=== PATIENT | male | born 1930 | race Caucasian/White ===

== ENCOUNTER 2016-04-29 22:53 | Inpatient (IN) | payer MEDICARE ==
[~2016-04-29] VITALS: Ht 177.8 cm; Wt 86.0 kg
[2016-04-29 22:53] VITALS: BP 101/54; PULSE 88; RESP 14; TEMP 97.9; O2SAT 96
[2016-04-29 23:25] VITALS: RESP 14; O2SAT 98
[2016-04-29] MEDS ORDERED: SODIUM CHLOR 0.9% 1000 ML INJ 1,000 ML IV ONE (23:30)
[2016-04-29 23:37] LABS: AUTOMATED NEUTROPHIL # 8.2 TH/MM3 (1.8-7.7); BASOPHIL % 0.3 % (0.0-2.0); EOSINOPHIL # 0.2 TH/MM3 (0-0.4); EOSINOPHIL % 1.5 % (0.0-4.0); HEMATOCRIT 37.4 % (39.0-51.0); HEMO FLAGS DIFF FINAL; LYMPH % 15.6 % (9.0-44.0); LYMPHOCYTE # 1.7 TH/MM3 (1.0-4.8); MEAN CELL VOLUME 84.7 FL (80.0-100.0); MEAN CORPUSCULAR HEMOGLOBIN 29.8 PG (27.0-34.0); MEAN CORPUSCULAR HGB CONC 35.2 % (32.0-36.0); MONO % 6.4 % (0.0-8.0); NEUT % 76.2 % (16.0-70.0); PLATELET COUNT 139 TH/MM3 (150-450); RED BLOOD COUNT 4.42 MIL/MM3 (4.50-5.90); RED CELL DISTRIBUTION WIDTH 14.4 % (11.6-17.2); WHITE BLOOD COUNT 10.8 TH/MM3 (4.0-11.0)
[2016-04-29] MEDS ORDERED: SODIUM CHLORID 0.9% 500 ML INJ 500 ML IV ONE (23:45)
[2016-04-29 23:49] LABS: APTT (PATIENT) 41.7 SEC (24.3-30.1); INTERNATIONAL NORMALIZED RATIO 1.9 RATIO; PROTHROMBIN TIME - PATIENT 21.8 SEC (9.8-11.6)
[2016-04-29 23:57] LABS: ALT (GPT) 41 U/L (12-78); ANION GAP 8 MEQ/L (5-15); AST (GOT) 41 U/L (15-37); BICARBONATE 28.3 MEQ/L (21.0-32.0); BLOOD UREA NITROGEN 17 MG/DL (7-18); CHLORIDE 106 MEQ/L (98-107); GLOMERULAR FILTRATION RATE 53 ML/MIN (>89); MAGNESIUM 2.1 MG/DL (1.5-2.5); POTASSIUM 3.6 MEQ/L (3.5-5.1); SODIUM (NA) 142 MEQ/L (136-145)
[2016-04-30] LABS: ALKALINE PHOSPHATASE 92 U/L (45-117); TOTAL BILIRUBIN ADULT 1.4 MG/DL (0.2-1.0)
[2016-04-30 00:02] LABS: CREATINE KINASE 78 U/L (39-308)
--- NOTE | 2016-04-30 00:24 | RADRPT ---
EXAM DATE/TIME: 04/29/2016 23:51 [facility] COMPARISON: No previous studies available for comparison. INDICATIONS : Short of breath and cough. MEDICAL HISTORY : Cardiovascular disease. SURGICAL HISTORY : CABG. Pacemaker. ENCOUNTER: Initial ACUITY: 2 days PAIN SCORE: Non-responsive. LOCATION: Bilateral chest FINDINGS: Cardiomegaly, sternotomy wires and mediastinal clips are noted from previous CABG. Pacer/ICD device f rom a left subclavian transvenous approach noted. The lungs are clear. Osseous structures are intact. CONCLUSION: No acute disease. Morgan Moser MD on April 30, 2016 at 0:22 Board Certified Radiologist. This report was verified electronically.
--- NOTE | 2016-04-30 00:47 | PD ---
HPI Chief Complaint: GI Complaint Time Seen by Provider: 23:09 Travel History International Travel<30 days: No Contact w/Intl Traveler<30days: No Traveled to known affect area: No History of Present Illness HPI The patient is an 86 year old male who presents to the [facility] emergency department with a history of reportedly awakening shortly after falling asleep with a strange sensation in his abdomen like he needed to move his bowels. He reports that he got up and unfortunately had bowel incontinence. According to ambulance services a stool was mainly brown, however there were some parts of the stool that appeared to be dark brown. The patient is reportedly on Coumadin for chronic anticoagulation related to atrial fibrillation. The patient reports that 2 weeks ago he had GI distress and thought that this may be related to coffee intake, therefore he decrease his coffee intake and the symptoms to resolve. He reports that he last had coffee at 3 AM yesterday. The patient denies having any abdominal pain currently. He denies having any nausea or vomiting. The patient reports that he last had a colonoscopy approximately 10 years ago which did have some polyps that were removed, however he was told that he did not require another colonoscopy given his age in the future. He denies any prior history of GI bleed. He reports that he last had his Coumadin level checked on Saturday and it was reportedly therapeutic. He had no changes in his medication regimen at that time. The patient denies any sick contacts, recent antibiotic use, or foreign travel. The patient denies any recent fevers, new cough or congestion, neck pain, chest pain, shortness of breath, urinary symptoms, or neurologic symptoms. [facility] Past Medical History Narrative Medical The patient's past medical history is significant for chf, mi 12 years ago, Afib chronically anticoagulated on coumadin, hypertension, history of gastritis , history of an abdominal aortic aneurysm, history of prostate cancer, history of skin cancer currently undergoing radiation therapy for this. History of hyperlipidemia. Last colonoscopy was approximately 10 years ago. Atrial Fibrillation: Yes Cancer: Yes (SKIN) High Cholesterol: Yes Congestive Heart Failure: Yes Radiation Therapy: Yes Tetanus Vaccination: Unknown Influenza Vaccination: Yes Past Surgical History Narrative Surgical The patient's past surgical history is significant for a pacemaker placement. Pacemaker: Yes Social History Alcohol Use: No Tobacco Use: No Substance Use: No Allergies-Medications (Allergen,Severity, Reaction): Coded Allergies: Penicillin (Verified Allergy, Intermediate, Rash, 04/29/16) Reported Meds & Prescriptions Reported Meds & Active Scripts Active Reported Atorvastatin (Atorvastatin Calcium) 40 Mg Tab 40 Mg PO HS Coreg (Carvedilol) 12.5 Mg Tab 12.5 Mg PO BID Torsemide 10 Mg Tab 10 Mg PO BID Jantoven (Warfarin) 5 Mg Tab 5 Mg PO DAILY Norvasc (Amlodipine Besylate) 10 Mg Tab 10 Mg PO DAILY Entresto (Sacubitril-Valsartan) 97-103 Mg Tab 1 Tab PO DAILY Review of Systems General / Constitutional: No: Fever Eyes: No: Visual changes HENT: No: Headaches Cardiovascular: No: Chest Pain or Discomfort Respiratory: No: Shortness of Breath Gastrointestinal: Positive: Diarrhea, Changes in Bowel Habits, No: Nausea, Vomiting, Abdominal Pain, Constipation, Indigestion, Loss of Appetite Genitourinary: No: Dysuria Musculoskeletal: No: Pain Skin: No Rash Neurologic: No: Weakness Psychiatric: No: Depression Endocrine: No: Polydipsia Hematologic/Lymphatic: No: Easy Bruising Physical Exam Narrative General: The patient is a well-developed well-nourished male in no acute distress. Head and Neck exam: Head is normocephalic atraumatic. Eyes: EOMI, pupils are equal round and reactive to light. Nose: Midline septum with pink mucous membranes Mouth: Dentition unremarkable. Moist mucus membranes. Posterior oropharynx is not erythematous. No tonsillar hypertrophy. Uvula midline. Airway patent. Neck: No palpable lymphadenopathy. No nuchal rigidity. No thyromegaly. Cardiovascular: Regular rate and rhythm without murmurs, gallops, or rubs. No pulse deficit to the extremities and simultaneous auscultation and palpation of his radial artery. Lungs: Clear to auscultation bilaterally. No wheezes, rhonchi, or rales. Abdomen: Soft, without tenderness to palpation in all 4 quadrants of the abdomen. No guarding, rebound, or rigidity. Normal bowel sounds are audible. No tenderness on palpation of McBurney's point. Negative Unger sign Extremities: No clubbing or cyanosis. The patient has trace pedal edema. 2+ pulses in all 4 extremities. No calf tenderness on palpation. Back: No spinous process tenderness to palpation. No costovertebral angle tenderness to palpation. Neurologic Exam: Grossly nonfocal. Skin Exam: No rash noted. Intact skin that is warm and dry. RECTAL EXAM: No masses or tenderness, stool is dark brown. Stool is trace Hemoccult-positive. Data Data Last Documented VS Vital Signs Date Time Temp Pulse Resp B/P Pulse Ox O2 Delivery O2 Flow Rate FiO2 04/29/16 23:25 14 98 Room Air 04/29/16 22:53 97.9 88 101/54 Orders Electrocardiogram (04/29/16 23:18) Complete Blood Count With Diff (04/29/16 23:18) Comprehensive Metabolic Panel (04/29/16 23:18) Creatine Kinase (Cpk) (04/29/16 23:18) Ckmb (Isoenzyme) Profile (04/29/16 23:18) Troponin I (04/29/16 23:18) B-Type Natriuretic Peptide (04/29/16 23:18) Prothrombin Time / Inr (Pt) (04/29/16 23:18) Act Partial Throm Time (Ptt) (04/29/16 23:18) C-Reactive Protein (Crp) (04/29/16 23:18) Lipase (04/29/16 23:18) Urinalysis - C+S If Indicated (04/29/16 23:18) Magnesium (Mg) (04/29/16 23:18) Chest, Single Ap (04/29/16 23:18) Iv Access Insert/Monitor (04/29/16 23:18) Ecg Monitoring (04/29/16 23:18) Oximetry (04/29/16 23:18) Lactic Acid Sepsis Protocol (04/29/16 23:18) Stool Wbc (Leukocytes) (04/29/16 23:29) Enteric Path (Stool) (04/29/16 23:29) C Diff Toxin Pcr (04/29/16 23:29) Sodium Chlor 0.9% 1000 Ml Inj (Ns 1000 M (04/29/16 23:30) Sodium Chlorid 0.9% 500 Ml Inj (Ns 500 M (04/29/16 23:45) Type And Screen (04/29/16 23:45) Ct Abd/Pel W Iv Contrast(Rout) (04/30/16 00:45) Iohexol 350 Inj (Omnipaque 350 Inj) (04/30/16 01:40) Pantoprazole Inj (Protonix Inj) (04/30/16 02:15) Pantoprazole Inj (Protonix Inj) (04/30/16 02:15) Admit Order (Ed Use Only) (04/30/16 02:31) Labs Laboratory Tests Test 04/29/16 04/30/16 04/30/16 23:25 00:10 01:30 White Blood Count 10.8 TH/MM3 Red Blood Count 4.42 MIL/MM3 Hemoglobin 13.2 GM/DL Hematocrit 37.4 % Mean Corpuscular Volume 84.7 FL Mean Corpuscular Hemoglobin 29.8 PG Mean Corpuscular Hemoglobin 35.2 % Concent Red Cell Distribution Width 14.4 % Platelet Count 139 TH/MM3 Mean Platelet Volume 8.8 FL Neutrophils (%) (Auto) 76.2 % Lymphocytes (%) (Auto) 15.6 % Monocytes (%) (Auto) 6.4 % Eosinophils (%) (Auto) 1.5 % Basophils (%) (Auto) 0.3 % Neutrophils # (Auto) 8.2 TH/MM3 Lymphocytes # (Auto) 1.7 TH/MM3 Monocytes # (Auto) 0.7 TH/MM3 Eosinophils # (Auto) 0.2 TH/MM3 Basophils # (Auto) 0.0 TH/MM3 CBC Comment DIFF FINAL Differential Comment Prothrombin Time 21.8 SEC Prothromb Time International 1.9 RATIO Ratio Activated Partial 41.7 SEC Thromboplast Time Sodium Level 142 MEQ/L Potassium Level 3.6 MEQ/L Chloride Level 106 MEQ/L Carbon Dioxide Level 28.3 MEQ/L Anion Gap 8 MEQ/L Blood Urea Nitrogen 17 MG/DL Creatinine 1.29 MG/DL Estimat Glomerular Filtration 53 ML/MIN Rate Random Glucose 122 MG/DL Lactic Acid Level 1.5 mmol/L Calcium Level 9.1 MG/DL Magnesium Level 2.1 MG/DL Total Bilirubin 1.4 MG/DL Aspartate Amino Transf 41 U/L (AST/SGOT) Alanine Aminotransferase 41 U/L (ALT/SGPT) Alkaline Phosphatase 92 U/L Total Creatine Kinase 78 U/L Troponin I LESS THAN 0.02 NG/ML C-Reactive Protein LESS THAN 0.29 MG/DL B-Type Natriuretic Peptide 569 PG/ML Total Protein 6.6 GM/DL Albumin 3.7 GM/DL Lipase 131 U/L Blood Type B NEGATIVE Antibody Screen NEGATIVE Blood Bank Comment Urine Color YELLOW Urine Turbidity CLEAR Urine pH 6.5 Urine Specific [place] 1.002 Urine Protein NEG mg/dL Urine Glucose (UA) NEG mg/dL Urine Ketones NEG mg/dL Urine Occult Blood NEG Urine Nitrite NEG Urine Bilirubin NEG Urine Urobilinogen LESS THAN 2.0 MG/DL Urine Leukocyte Esterase NEG Urine RBC 1 /hpf Urine WBC 2 /hpf Microscopic Urinalysis Comment CULT NOT INDICATED MDM Medical Decision Making Medical Screen Exam Complete: Yes Emergency Medical Condition: Yes Medical Record Reviewed: Yes Interpretation(s) Last Impressions Abdomen/Pelvis CT 04/30/16 0045 Signed Impressions: Service Date/Time: Saturday, April 30, 2016 01:40 - CONCLUSION: 1. 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 2. Atherosclerosis. 3. Nonobstructing renal calculi. 4. Diverticulosis without diverticulitis. 5. Prominent prostate gland. 6. Small hiatal hernia. 7. Fat containing umbilical hernia. 8. Tiny bilateral pleural effusions. Morgan Moser MD Chest X-Ray 04/29/16 4045 Signed Impressions: Service Date/Time: Friday, April 29, 2016 23:51 - CONCLUSION: No acute disease. Morgan Moser MD Differential Diagnosis GI bleed, versus gastroenteritis, versus elevated INR Narrative Course During the course of the patients emergency department visit, the patients history, examination, and differential diagnosis were reviewed with the patient. The patient had IV access obtained and blood work sent for analysis. The patient was placed on a desk monitor with oximetry and blood pressure monitoring. The patient had an EKG done on arrival. The patient's EKG shows an electronically paced rhythm, heart rate of 87, no acute abnormality. The patient's blood pressure briefly dropped down to a systolic in the 90s. The patient was given normal saline a 500 mL bolus 1. The patient was started on Protonix 80 mg IV, Protonix 80 mg IV per hour. The patients laboratory studies were reviewed and remarkable for a white count of 10.8, hemoglobin 13.2, platelets 139 with neutrophils 76.2, CMP is remarkable for glucose of 122, total bilirubin 1.4, AST 41, CPK and troponin I unremarkable, C-reactive protein less than 0.29, BNP is 569, lipase 131, INR is 1.9, urinalysis is unremarkable Radiology studies were reviewed and remarkable for a chest x-ray that shows no acute abnormality. CT scan of the abdomen and pelvis shows a focal aneurysmal dilatation of the infrarenal abdominal aorta that is 4.1 x 3.3 cm. The patient reports that he has a history of this, history of atherosclerosis noted of the aorta and iliac vessels, nonobstructing renal calculi, diverticulosis without diverticulitis, prominent prostate gland, small hiatal hernia, fat containing umbilical hernia, tiny bilateral pleural effusions. The patient has Hemoccult positive stools on examination. The patient had a brief drop in his blood pressure that improved after IV fluids. The patient will be admitted to the hospital for continued evaluation and treatment, serial hemoglobins given the fact that the patient is anticoagulated on Coumadin with an INR 1.9. The patients results were discussed with the patient, including the plan of care. I explained that further testing and/ or monitoring is indicated based on the patients history, examination, and/ or laboratory findings. Therefore, I recommended admission for additional evaluation. The patient expressed understanding and was agreeable with this plan. The patient was admitted to the hospital in guarded condition and [facility] Phys[facility] Communication Physician Communication The patient's case was discussed with Dr. Degroot who did agree to admit the patient for further evaluation and treatment at this time. Diagnosis Primary Impression: GI bleed Qualified Code: K92.2 - Gastrointestinal hemorrhage, unspecified gastrointestinal hemorrhage type Additional Impressions: Thrombocytopenia Transient hypotension Admitting Information Admitting Physician Requests: Admit Jody Ferreira MD Apr 30, 2016 00:47
[2016-04-30] MEDS ORDERED: IOHEXOL 350 MG/ML 10 ML VIAL (for RAD DIAG) IV ONE (01:40)
--- NOTE | 2016-04-30 01:55 | RADRPT ---
EXAM DATE/TIME: 04/30/2016 01:40 [facility] COMPARISON: No previous studies available for comparison. INDICATIONS : Diarrhea, weakness, and lethargy. IV CONTRAST: 98 cc Omnipaque 350 (iohexol) IV ORAL CONTRAST: No oral contrast ingested. RADIATION DOSE: 11.07 CTDIvol (mGy) MEDICAL HISTORY : Congestive heart failure. Skin cancer. SURGICAL HISTORY : Pacemaker. ENCOUNTER: Initial ACUITY: 1 day PAIN SCALE: 0/10 LOCATION: Bilateral abdomen TECHNIQUE: Volumetric scanning of the abdomen and pelvis was performed. Using automated exposure control and ad justment of the mA and/or kV according to patient size, radiation dose was kept as low as reasonably achievable to obtain optimal diagnostic quality images. FINDINGS: Cardiomegaly. Liver, gallbladder, spleen, pancreas, adrenal glands, right kidney unremarkable. 3 mm n onobstructing left lower pole renal calculus. There is atherosclerotic calcification of the aorta and iliac vessels and focal aneurysmal dilatation of the infrarenal abdominal aorta measuring 4.1 x 3.3 cm in transverse and AP dimension on axial image 41. Urinary bladder unremarkable. The prostate gland is prominent in size measuring 5.5 x 5.8 cm in AP transverse dimension with soft tissue impression o n the posterior aspect of the urinary bladder. Tiny fat containing umbilical hernia. Diverticulosis o f the sigmoid colon and descending colon. Appendix normal. Small hiatal hernia. Degenerative changes of the lumbar spine are noted. Tiny bilateral pleural effusions. CONCLUSION: 1. 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 2. Atherosclerosis. 3. Nonobstructing renal calculi. 4. Diverticulosis without diverticulitis. 5. Prominent prostate gland. 6. Small hiatal hernia. 7. Fat containing umbilical hernia. 8. Tiny bilateral pleural effusions. Morgan Moser MD on April 30, 2016 at 1:51 Board Certified Radiologist. This report was verified electronically.
[2016-04-30] MEDS ORDERED: PANTOPRAZOLE INJ 80 MG in SODIUM CHLORIDE 0.9% INJ 35 ML IV ONE (02:15)
[2016-04-30 02:24] LABS: BLOOD, URINE NEG (NEG); COMMENT (UR) CULT NOT INDICATED; CULTURE IF INDICATED CULT NOT INDICATED; GLUCOSE,URINE NEG (NEG); KETONE, URINE NEG (NEG); NITRITE,URINE NEG (NEG); PH, URINE 6.5 (5.0-8.5); URINE COLOR YELLOW (YELLW/STRAW)
[2016-04-30] MEDS: SODIUM CHLOR 0.9% 1000 ML INJ 1,000 ML IV SCH ×3 (02:42→22:03)
[2016-04-30] MEDS: PANTOPRAZOLE INJ 80 MG in SODIUM CHLORIDE 0.9% INJ 100 ML IV SCH ×2 (02:42→19:33)
[2016-04-30] MEDS ORDERED: ATOR40TA16 PO (02:44)
[2016-04-30] MEDS ORDERED: JANT5TAB PO (02:44)
[2016-04-30] MEDS ORDERED: TORS10TA2 PO (02:44)
[2016-04-30] MEDS ORDERED: SACU1TAB4 PO (02:44)
[2016-04-30] MEDS ORDERED: AMLO10 PO (02:44)
[2016-04-30] MEDS ORDERED: CARV12.5 PO (02:44)
[2016-04-30] MEDS ORDERED: ONDANSETRON HCL 4 MG/2 ML VIAL IVP PRN (02:45)
[2016-04-30] MEDS ORDERED: BISACODYL 10 MG SUPP PR PRN (02:45)
[2016-04-30] MEDS ORDERED: MORPHINE SULFATE 4 MG/ML INJ IV PRN (02:45)
[2016-04-30] MEDS ORDERED: ACETAMINOPHEN 325 MG TAB PO PRN (02:45)
[2016-04-30] MEDS ORDERED: SODIUM CHLORIDE 0.9% FLUSH 5 ML FLUSH FLUSH PRN (02:45)
[2016-04-30] MEDS ORDERED: ACETAMINOPHEN/HYDROcodone 325 MG/5 MG TAB PO PRN (02:45)
[2016-04-30 03:00] VITALS: BP 114/59; PULSE 83; RESP 16; O2SAT 98
[2016-04-30 04:00] LABS: AUTOMATED NEUTROPHIL # 8.3 TH/MM3 (1.8-7.7); BASOPHIL % 0.4 % (0.0-2.0); EOSINOPHIL # 0.1 TH/MM3 (0-0.4); HEMATOCRIT 38.2 % (39.0-51.0); HEMO FLAGS DIFF FINAL; LYMPH % 16.7 % (9.0-44.0); LYMPHOCYTE # 1.8 TH/MM3 (1.0-4.8); MEAN CELL VOLUME 84.9 FL (80.0-100.0); MEAN CORPUSCULAR HEMOGLOBIN 29.2 PG (27.0-34.0); MEAN CORPUSCULAR HGB CONC 34.4 % (32.0-36.0); MONO % 6.2 % (0.0-8.0); NEUT % 75.7 % (16.0-70.0); PLATELET COUNT 137 TH/MM3 (150-450); RED CELL DISTRIBUTION WIDTH 14.2 % (11.6-17.2); WHITE BLOOD COUNT 10.9 TH/MM3 (4.0-11.0)
--- NOTE | 2016-04-30 04:01 | HHI.HP ---
[facility] Service [facility] Primary Care Physician Elio Fletcher MD Admission Diagnosis GI Bleed Diagnoses: (1) GI bleed Diagnosis: Principal (2) Transient hypotension Diagnosis: Principal (3) A-fib Diagnosis: Principal (4) Thrombocytopenia Diagnosis: Principal Travel History International Travel<30 Days: No Contact w/Intl Traveler <30 Da: No Traveled to Known Affected Are: No History of Present Illness This is an 86-year-old male with PMH of HTN, A. fib on Coumadin, Gastritis, AAA , h/o Prostate CA and Skin CA who was brought to the ER by EMS secondary to GI Bleed. Per pt he woke up from sleep earlier this evening and had acute onset of abdominal cramping followed by bowel incontinence. On arrival, BP 80s systolic s/p 500ml IVF w/ repeat BP 101/54, HR 88, O2 sat 98% on RA, Afebrile. Hgb 13.2. Chemistry essentially unremarkable. Troponin negative. INR 1.9. UA negative. CXR with no acute findings. CT Abd/Pelvis w/ infrarenal abdominal aortic aneurysm 4.1 x 3.3 cm. Hemoccult+ on exam. Started on Protonix gtt in ER. Review of Systems Other ROS: 14 point review of systems otherwise negative. Past Family Social History Past Medical History PMH: HTN, A. fib on Coumadin, Gastritis, AAA, h/o Prostate CA and Skin CA Past Surgical History PAST SURGICAL HISTORY: Pacemaker Allergies: Coded Allergies: Penicillin (Verified Allergy, Intermediate, Rash, 04/29/16) Family History PAST FAMILY HISTORY: Reviewed. No h/o DM or CAD Social History PAST SOCIAL HISTORY: Negative for alcohol, tobacco or drugs. Physical Exam Vital Signs Vital Signs Date Time Temp Pulse Resp B/P Pulse Ox O2 Delivery O2 Flow Rate FiO2 04/29/16 23:25 14 98 Room Air 04/29/16 22:53 97.9 88 14 101/54 96 04/29/16 22:53 14 Physical Exam PE: GENERAL: Pleasant elderly white male in no acute distress. [place]. HEENT: PERRLA, EOMI. No scleral icterus or conjunctival pallor. No lid lag or facial droop. CARDIOVASCULAR: Regular rate and rhythm. No obvious murmurs to auscultation. No chest tenderness to palpation. RESPIRATORY: No obvious rhonchi or wheezing. Clear to auscultation. Breath sounds equal bilaterally. GASTROINTESTINAL: Abdomen soft, non-tender, nondistended. BS normal. MUSCULOSKELETAL: Extremities without clubbing, cyanosis, or edema. No obvious deformities. NEUROLOGICAL: Awake, alert and oriented x4. No focal neurologic deficits. Moving both upper and lower extremities spontaneously. Laboratory Laboratory Tests Test 04/29/16 04/30/16 04/30/16 23:25 00:10 01:30 White Blood Count 10.8 Red Blood Count 4.42 Hemoglobin 13.2 Hematocrit 37.4 Mean Corpuscular Volume 84.7 Mean Corpuscular Hemoglobin 29.8 Mean Corpuscular Hemoglobin 35.2 Concent Red Cell Distribution Width 14.4 Platelet Count 139 Mean Platelet Volume 8.8 Neutrophils (%) (Auto) 76.2 Lymphocytes (%) (Auto) 15.6 Monocytes (%) (Auto) 6.4 Eosinophils (%) (Auto) 1.5 Basophils (%) (Auto) 0.3 Neutrophils # (Auto) 8.2 Lymphocytes # (Auto) 1.7 Monocytes # (Auto) 0.7 Eosinophils # (Auto) 0.2 Basophils # (Auto) 0.0 CBC Comment DIFF FINAL Differential Comment Prothrombin Time 21.8 Prothromb Time International 1.9 Ratio Activated Partial 41.7 Thromboplast Time Sodium Level 142 Potassium Level 3.6 Chloride Level 106 Carbon Dioxide Level 28.3 Anion Gap 8 Blood Urea Nitrogen 17 Creatinine 1.29 Estimat Glomerular Filtration 53 Rate Random Glucose 122 Lactic Acid Level 1.5 Calcium Level 9.1 Magnesium Level 2.1 Total Bilirubin 1.4 Aspartate Amino Transf 41 (AST/SGOT) Alanine Aminotransferase 41 (ALT/SGPT) Alkaline Phosphatase 92 Total Creatine Kinase 78 Troponin I LESS THAN 0.02 C-Reactive Protein LESS THAN 0.29 B-Type Natriuretic Peptide 569 Total Protein 6.6 Albumin 3.7 Lipase 131 Blood Type B NEGATIVE Antibody Screen NEGATIVE Blood Bank Comment Urine Color YELLOW Urine Turbidity CLEAR Urine pH 6.5 Urine Specific [place] 1.002 Urine Protein NEG Urine Glucose (UA) NEG Urine Ketones NEG Urine Occult Blood NEG Urine Nitrite NEG Urine Bilirubin NEG Urine Urobilinogen LESS THAN 2.0 Urine Leukocyte Esterase NEG Urine RBC 1 Urine WBC 2 Microscopic Urinalysis Comment CULT NOT INDICATED Result Diagram: 04/29/16 8954 04/29/16 Assessment and Plan Problem List: (1) GI bleed ICD Code: K92.2 Status: Acute (2) Transient hypotension ICD Code: I95.9 Status: Acute (3) A-fib ICD Code: I48.91 Status: Acute (4) Thrombocytopenia ICD Code: D69.6 Status: Acute Assessment and Plan A/P: 1. GI Bleed: Acute onset of abdominal cramping followed by bowel incontinence , +Hemoccult on exam. On Coumadin for A-fib, INR 1.9. Hgb 13.5. Started on Protonix gtt in ER. Continue Protonix gtt, Consult GI for further evaluation, hold Coumadin, repeat labs in am. 2. Transient Hypotension: BP 80's systolic on arrival, s/p 500ml IVF w/ repeat BP 101/54, HR 88. Monitor BP closely, IVF for hydration. Hold home antihypertensive meds for now until BP stabilized. 3. A-fib: Paroxysmal. On Coumadin. INR 1.9. As above, will hold Coumadin for acute GI Bleed. 4. Thrombocytopenia: Platelets 139, no previous labs for comparison. Repeat labs in am, hold anticoagulation. 5. DVT Prophylaxis: Pharmacologic contraindication in light of GI Bleed 6. Social work for d/c planning as needed. 7. Case discussed w/ ER physician at length. Physician Certification 2 Midnight Certification Type: Admission for Inpatient Services Order for Inpatient Services The services are ordered in accordance with Medicare regulations or non- Medicare payer requirements, as applicable. In the case of services not specified as inpatient-only, they are appropriately provided as inpatient services in accordance with the 2-midnight benchmark. Estimated LOS (days): 2 days is the estimated time the patient will need to remain in the hospital, assuming treatment plan goals are met and no additional complications. Post-Hospital Plan: Not yet determined Rani Degroot MD Apr 30, 2016 04:01
[2016-04-30 04:24] LABS: ALT (GPT) 36 U/L (12-78); ANION GAP 8 MEQ/L (5-15); AST (GOT) 26 U/L (15-37); BICARBONATE 26.3 MEQ/L (21.0-32.0); BLOOD UREA NITROGEN 15 MG/DL (7-18); CHLORIDE 108 MEQ/L (98-107); GLOMERULAR FILTRATION RATE 65 ML/MIN (>89); SODIUM (NA) 142 MEQ/L (136-145)
[2016-04-30 04:26] LABS: ALKALINE PHOSPHATASE 86 U/L (45-117); TOTAL BILIRUBIN ADULT 1.4 MG/DL (0.2-1.0)
[2016-04-30 08:39] VITALS: BP 128/63; PULSE 84; RESP 20; TEMP 97.4; O2SAT 97
[2016-04-30] MEDS: SODIUM CHLORIDE 0.9% FLUSH 5 ML FLUSH FLUSH SCH ×2 (09:00→20:54)
--- NOTE | 2016-04-30 09:15 | PD.CONS ---
HPI History of Present Illness This is a 86 year old male on Coumadin for atrial fibrillation, who was brought to the ER for evaluation of GI bleeding. He reports that recently, he has been having what he calls "intestinal distress" with lower abdominal cramping, urgency to move his bowels, and loose stool. He felt this was related to drinking 3 cups of caffeinated coffee and therefore cut down his coffee and started using imodium as needed- which seemed to help. He reports that his episodes were sporadic and that he never noticed if it was dark stool or not. Yesterday, he went to bed and was awakened around 10pm with the sudden urge to move his bowels. He reports that he was not able to make it to the restroom before he was incontinent of black stool. Once he was in the bathroom, he had a feeling of being "out of his body in outer space" and therefore called 911 for help. He denies any associated nausea, vomiting, heartburn, reflux. He does take Coumadin for atrial fibrillation and took this last yesterday. He reports that he last had a colonoscopy 10 years ago. About 3 years ago, he was noted to have borderline anemia and it was suspected that he may have some upper gi bleeding related to gastritis and therefore was started on an acid access control officer. He did not have any endoscopic evaluation at that time and he cannot recall if he had his stool checked for blood, but states his primary care evaluated him for this and that was what was suspected. (Priscilla Diamond) PFSH Past Medical History HTN A. fib on Coumadin Suspected Gastritis AAA Hx of Prostate CA Hx of Skin CA- radiation CHF CAD/MD Hyperlipidemia. Osteoarthritis Past Surgical History Pacemaker placement Colonoscopy Left knee replacement (Priscilla Diamond) Coded Allergies: Penicillin (Verified Allergy, Intermediate, Rash, 04/29/16) Medications Allergies Coded Allergies Type Severity Reaction Last Updated Verified Penicillin Allergy Intermediate Rash 04/29/16 Yes Active Scripts Medications Dose Route/Sig Days Date Category Atorvastatin (Atorvastatin Calcium) 40 Mg Tab 40 Mg PO HS 04/30/16 Reported Coreg (Carvedilol) 12.5 Mg Tab 12.5 Mg PO BID 04/30/16 Reported Torsemide 10 Mg Tab 10 Mg PO BID 04/30/16 Reported Jantoven (Warfarin) 5 Mg Tab 5 Mg PO DAILY 04/30/16 Reported Norvasc (Amlodipine Besylate) 10 Mg Tab 10 Mg PO DAILY 04/30/16 Reported Entresto (Sacubitril-Valsartan) 97-103 Mg Tab 1 Tab PO DAILY 04/30/16 Reported Family History Father from lung cancer Social History Negative for alcohol, tobacco or drugs. (LoboPriscilla) Review of Systems Constitutional: COMPLAINS OF: Fatigue, DENIES: Weight loss, Change in appetite Respiratory: DENIES: Cough, Shortness of breath Cardiovascular: DENIES: Chest pain Gastrointestinal: COMPLAINS OF: Abdominal pain, Black stools, Diarrhea, DENIES : Bloody stools, Constipation, Nausea, Vomiting, Anorexia, Swelling of Abdomen, Heartburn, Hematemesis Musculoskeletal: COMPLAINS OF: Joint pain Integumentary: DENIES: Abnormal pigmentation Hematologic/lymphatic: COMPLAINS OF: Bruising Neurologic: DENIES: Headache Psychiatric: DENIES: Confusion (Priscilla Diamond) GI Exam Vitals I&O Vital Signs Date Time Temp Pulse Resp B/P Pulse Ox O2 Delivery O2 Flow Rate FiO2 04/30/16 08:39 97.4 84 20 128/63 97 04/30/16 03:00 83 16 114/59 98 Room Air 04/29/16 23:25 14 98 Room Air 04/29/16 22:53 97.9 88 14 101/54 96 04/29/16 22:53 14 I/O 04/29/16 04/29/16 04/29/16 04/30/16 04/30/16 04/30/16 07:00 15:00 23:00 07:00 15:00 23:00 Intake Total 0 ml Balance 0 ml Intake Oral 0 ml # Voids 0 # Bowel Movements 0 Imaging Last Impressions Abdomen/Pelvis CT 04/30/16 0045 Signed Impressions: Service Date/Time: Saturday, April 30, 2016 01:40 - CONCLUSION: 1. 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 2. Atherosclerosis. 3. Nonobstructing renal calculi. 4. Diverticulosis without diverticulitis. 5. Prominent prostate gland. 6. Small hiatal hernia. 7. Fat containing umbilical hernia. 8. Tiny bilateral pleural effusions. Morgan Moser MD Chest X-Ray 04/29/16 8804 Signed Impressions: Service Date/Time: Friday, April 29, 2016 23:51 - CONCLUSION: No acute disease. Morgan Moser MD Laboratory Test 04/29/16 04/30/16 04/30/16 04/30/16 23:25 00:10 01:30 03:43 White Blood Count 10.8 TH/MM3 10.9 TH/MM3 Red Blood Count 4.42 MIL/MM3 4.50 MIL/MM3 Hemoglobin 13.2 GM/DL 13.1 GM/DL Hematocrit 37.4 % 38.2 % Mean Corpuscular Volume 84.7 FL 84.9 FL Mean Corpuscular Hemoglobin 29.8 PG 29.2 PG Mean Corpuscular Hemoglobin 35.2 % 34.4 % Concent Red Cell Distribution Width 14.4 % 14.2 % Platelet Count 139 TH/MM3 137 TH/MM3 Mean Platelet Volume 8.8 FL 8.6 FL Neutrophils (%) (Auto) 76.2 % 75.7 % Lymphocytes (%) (Auto) 15.6 % 16.7 % Monocytes (%) (Auto) 6.4 % 6.2 % Eosinophils (%) (Auto) 1.5 % 1.0 % Basophils (%) (Auto) 0.3 % 0.4 % Neutrophils # (Auto) 8.2 TH/MM3 8.3 TH/MM3 Lymphocytes # (Auto) 1.7 TH/MM3 1.8 TH/MM3 Monocytes # (Auto) 0.7 TH/MM3 0.7 TH/MM3 Eosinophils # (Auto) 0.2 TH/MM3 0.1 TH/MM3 Basophils # (Auto) 0.0 TH/MM3 0.0 TH/MM3 CBC Comment DIFF FINAL DIFF FINAL Differential Comment Prothrombin Time 21.8 SEC Prothromb Time International 1.9 RATIO Ratio Activated Partial 41.7 SEC Thromboplast Time Sodium Level 142 MEQ/L 142 MEQ/L Potassium Level 3.6 MEQ/L 4.0 MEQ/L Chloride Level 106 MEQ/L 108 MEQ/L Carbon Dioxide Level 28.3 MEQ/L 26.3 MEQ/L Anion Gap 8 MEQ/L 8 MEQ/L Blood Urea Nitrogen 17 MG/DL 15 MG/DL Creatinine 1.29 MG/DL 1.08 MG/DL Estimat Glomerular Filtration 53 ML/MIN 65 ML/MIN Rate Random Glucose 122 MG/DL 106 MG/DL Lactic Acid Level 1.5 mmol/L Calcium Level 9.1 MG/DL 8.7 MG/DL Magnesium Level 2.1 MG/DL Total Bilirubin 1.4 MG/DL 1.4 MG/DL Aspartate Amino Transf 41 U/L 26 U/L (AST/SGOT) Alanine Aminotransferase 41 U/L 36 U/L (ALT/SGPT) Alkaline Phosphatase 92 U/L 86 U/L Total Creatine Kinase 78 U/L Troponin I LESS THAN 0.02 NG/ML C-Reactive Protein LESS THAN 0.29 MG/DL B-Type Natriuretic Peptide 569 PG/ML Total Protein 6.6 GM/DL 6.3 GM/DL Albumin 3.7 GM/DL 3.5 GM/DL Lipase 131 U/L Blood Type B NEGATIVE Antibody Screen NEGATIVE Blood Bank Comment Urine Color YELLOW Urine Turbidity CLEAR Urine pH 6.5 Urine Specific Jerome 1.002 Urine Protein NEG mg/dL Urine Glucose (UA) NEG mg/dL Urine Ketones NEG mg/dL Urine Occult Blood NEG Urine Nitrite NEG Urine Bilirubin NEG Urine Urobilinogen LESS THAN 2.0 MG/DL Urine Leukocyte Esterase NEG Urine RBC 1 /hpf Urine WBC 2 /hpf Microscopic Urinalysis Comment CULT NOT INDICATED Physical Examination HEENT: Normocephalic; atraumatic; no jaundice. Throat is clear. NECK: Neck is supple, no JVD, no lymphadenopathy. CHEST: CTA CARDIAC: Irregular ABDOMEN: Soft, nondistended, nontender; no hepatosplenomegaly; bowel sounds are present in all four quadrants. EXTREMITIES: No clubbing, cyanosis, or edema. SKIN: Normal; no rash; no jaundice. MANUFACTURING TEAM LEADER: No focal deficits; alert and oriented times three. (Priscilla DiamondP) Assessment and Plan Plan ASSESSMENT: - Upper GI bleeding, Melena. Pt had sudden urge to move his bowels with lower abdominal cramping, urgency, incontinence of black tarry stool. Last colonoscopy 10 years ago. About 3 years ago, he was noted to have borderline anemia and it was suspected that he may have some upper gi bleeding related to gastritis and therefore was started on an acid access control officer. He did not have any endoscopic evaluation at that time. HH stable. INR 1.9. Coumadin on hold. PPI Gtt. - Atrial fibrillation, on Coumadin. - HTN, CHF, CAD/MD, Hyperlipidemia per primary PLAN: - Plan for egd - Obtain consents - Cont. PPI Gtt for now - Monitor HH - Transfuse as necessary - Supportive care - Further recommendations to follow based on results of above - Pt seen and examined by Dr. Mueller and myself and this note is written on his behalf (Priscilla Diamond) Physician Comments Seen and examined with Ms. Amira RAJAN, no active bleeding, feels well. Family at the bedside. EGD planned for tomorrow, if -ve possible colonoscopy. Monitor labs. Will follow. Thank you (Janeth Mueller MD) Priscilla Diamond Apr 30, 2016 09:15 Janeth Mueller MD Apr 30, 2016 18:26
--- NOTE | 2016-04-30 11:43 | EKG ---
Date Performed: 04/29/2016 Time Performed: 23:06:12 PTAGE: 86 years EKG: ELECTRONIC VENTRICULAR PACEMAKER ABNORMAL RHYTHM ECG NO PREVIOUS TRACING DOCTOR: Bryan Silva Interpretating Date/Time 04/30/2016 11:41:26
[2016-04-30 12:00] VITALS: BP 141/78; PULSE 97; RESP 21; TEMP 97.8; O2SAT 97
[2016-04-30 14:00] VITALS: BP 136/78; PULSE 74; RESP 19; TEMP 98.5; O2SAT 96
[2016-04-30 20:12] VITALS: BP 125/74; PULSE 96; RESP 17; TEMP 98.2; O2SAT 96
[2016-05-01] VITALS (7 sets, daily range): BP systolic 136–160; BP diastolic 67–84; PULSE 78–87; RESP 17–19; TEMP 96.2–98; O2SAT 96–98
[2016-05-01 07:03] LABS: INTERNATIONAL NORMALIZED RATIO 1.8 RATIO; PROTHROMBIN TIME - PATIENT 20.1 SEC (9.8-11.6)
[2016-05-01 07:13] LABS: AUTOMATED NEUTROPHIL # 5.8 TH/MM3 (1.8-7.7); BASOPHIL % 0.4 % (0.0-2.0); EOSINOPHIL # 0.2 TH/MM3 (0-0.4); EOSINOPHIL % 2.7 % (0.0-4.0); HEMATOCRIT 36.1 % (39.0-51.0); HEMO FLAGS DIFF FINAL; LYMPH % 17.2 % (9.0-44.0); LYMPHOCYTE # 1.4 TH/MM3 (1.0-4.8); MEAN CORPUSCULAR HEMOGLOBIN 29.7 PG (27.0-34.0); MEAN CORPUSCULAR HGB CONC 34.5 % (32.0-36.0); MONO % 7.4 % (0.0-8.0); NEUT % 72.3 % (16.0-70.0); PLATELET COUNT 131 TH/MM3 (150-450); RED CELL DISTRIBUTION WIDTH 14.5 % (11.6-17.2)
[2016-05-01] MEDS: PANTOPRAZOLE INJ 80 MG in SODIUM CHLORIDE 0.9% INJ 100 ML IV SCH (08:36)
[2016-05-01] MEDS: SODIUM CHLORIDE 0.9% FLUSH 5 ML FLUSH FLUSH SCH ×2 (09:00→21:00)
[2016-05-01] MEDS ORDERED: PROPOFOL 200 MG/20 ML AMP IV ONE (11:30)
[2016-05-01] MEDS ORDERED: PEG (High)/E-LYTE SOLN 4000 ML BTL PO ONE (11:45)
[2016-05-01] MEDS ORDERED: DO NOT ADM ANY ANTICOAGULANT DRUGS XX PRN (12:24)
--- NOTE | 2016-05-01 17:01 | HHI.PR ---
Subjective Remarks Patient seen in follow-up for GI bleeding. He reports that he is feeling well. No further black stool for now. He will have a colonoscopy tomorrow per GI. Objective Vitals Vital Signs Date Time Temp Pulse Resp B/P Pulse Ox O2 Delivery O2 Flow Rate FiO2 05/01/16 16:09 96.2 80 18 140/71 96 05/01/16 13:27 97 21 05/01/16 11:46 87 16 107/58 94 05/01/16 11:41 89 16 100/58 93 05/01/16 11:36 98.9 88 16 104/59 94 05/01/16 08:00 98.0 78 18 148/80 97 05/01/16 05:21 97.7 85 17 136/67 96 05/01/16 00:39 97.6 80 17 136/75 97 04/30/16 20:12 98.2 96 17 125/74 96 I/O 04/30/16 04/30/16 04/30/16 05/01/16 05/01/16 05/01/16 07:00 15:00 23:00 07:00 15:00 23:00 Intake Total 0 ml 550 ml 1187 ml 200 ml Output Total 500 ml 200 ml Balance 0 ml 550 ml 687 ml 0 ml Intake Oral 0 ml 550 ml 360 ml IV Total 827 ml 200 ml Output Urine Total 500 ml 200 ml # Voids 0 3 # Bowel Movements 0 0 Result Diagram: 05/01/16 0554 04/30/16 0343 Imaging Last Impressions Abdomen/Pelvis CT 04/30/16 0045 Signed Impressions: Service Date/Time: Saturday, April 30, 2016 01:40 - CONCLUSION: 1. 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 2. Atherosclerosis. 3. Nonobstructing renal calculi. 4. Diverticulosis without diverticulitis. 5. Prominent prostate gland. 6. Small hiatal hernia. 7. Fat containing umbilical hernia. 8. Tiny bilateral pleural effusions. Morgan Moser MD Chest X-Ray 04/29/16 3004 Signed Impressions: Service Date/Time: Friday, April 29, 2016 23:51 - CONCLUSION: No acute disease. Morgan Moser MD Objective Remarks GENERAL: Elderly male in no apparent distress. CARDIOVASCULAR: Normal rate and regular rhythm without murmurs, gallops, or rubs. RESPIRATORY: Good respiratory efforts. Breath sounds equal and clear to auscultation bilaterally. GASTROINTESTINAL: Abdomen soft, non-tender, non-distended. Normal active bowel sounds MUSCULOSKELETAL: Extremities without cyanosis, or edema. NEURO: Alert & Oriented x4 to person, place, time, situation. Moves all ext x4 PSYCH: Appropriate mood and affect. A/P Problem List: (1) GI bleed ICD Code: K92.2 Status: Acute (2) Transient hypotension ICD Code: I95.9 Status: Acute (3) A-fib ICD Code: I48.91 Status: Acute (4) Thrombocytopenia ICD Code: D69.6 Status: Acute Assessment and Plan 86-year-old male with: GI bleeding: Patient presented with melena. He is on Coumadin for atrial fibrillation. -Appreciate GI following. Status post EGD with findings of no acute bleeding. Plan for colonoscopy tomorrow. - Continue Protonix. Continue to hold Coumadin. Follow up labs in the morning. Transient hypertension: Systolic blood pressure was in the 80s on arrival. His blood pressure have since stabilized. Continue to hold antihypertensives Paroxysmal atrial fibrillation: Patient was on Coumadin. INR on admission 1.9. Continue to hold Coumadin for GI bleeding. Will need to Thrombocytopenia: Unsure of chronicity. Currently stable. Continue to monitor. DVT Prophylaxis: Pharmacologic contraindication in light of GI Bleed Problem Qualifiers (1) GI bleed: Qualified Code: K92.2 - Gastrointestinal hemorrhage, unspecified gastrointestinal hemorrhage type Wm Cottrell MD May 01, 2016 17:01
[2016-05-01] MEDS: SODIUM CHLOR 0.9% 1000 ML INJ 1,000 ML IV SCH (21:25)
[2016-05-02] VITALS (8 sets, daily range): BP systolic 137–142; BP diastolic 71–76; PULSE 76–86; RESP 18–20; TEMP 97–98.6; O2SAT 95–98
[2016-05-02] MEDS ORDERED: METOPROLOL TARTRATE 25 MG TAB PO PRN (08:15)
[2016-05-02] MEDS ORDERED: SODIUM CHLORID 0.9% 500 ML IV SCH (08:15)
[2016-05-02] MEDS ORDERED: INSULIN HUMAN REGULAR 1,000 UNITS/10 ML VIAL SQ PRN (08:15)
[2016-05-02] MEDS ORDERED: LACTATED RINGER'S 1000 ML IV SCH (08:15)
[2016-05-02] MEDS: SODIUM CHLORIDE 0.9% FLUSH 5 ML FLUSH FLUSH SCH (09:00)
[2016-05-02 09:43] LABS: HEMATOCRIT 35.6 % (39.0-51.0); MEAN CELL VOLUME 83.6 FL (80.0-100.0); MEAN CORPUSCULAR HEMOGLOBIN 29.5 PG (27.0-34.0); MEAN CORPUSCULAR HGB CONC 35.3 % (32.0-36.0); PLATELET COUNT 126 TH/MM3 (150-450); RED BLOOD COUNT 4.26 MIL/MM3 (4.50-5.90); RED CELL DISTRIBUTION WIDTH 14.1 % (11.6-17.2); REVIEW FLAG FINAL
[2016-05-02 10:04] LABS: BICARBONATE 22.5 MEQ/L (21.0-32.0); POTASSIUM 3.5 MEQ/L (3.5-5.1)
[2016-05-02] MEDS ORDERED: PROPOFOL 200 MG/20 ML AMP IV ONE (11:12)
[2016-05-02] MEDS: SODIUM CHLOR 0.9% 1000 ML INJ 1,000 ML IV SCH (11:43)
[2016-05-02] MEDS ORDERED: DO NOT ADM ANY ANTICOAGULANT DRUGS XX PRN (12:30)
[2016-05-02] MEDS ORDERED: CARV3.12 PO (16:08)
[2016-05-02] MEDS ORDERED: PROT40TA PO ×2 (16:09→16:12)
--- NOTE | 2016-05-02 16:10 | HHI.DS ---
Discharge Summary Admission Date Apr 30, 2016 at 02:33 Discharge Date: May 02, 2016 Admitting Diagnosis GI Bleed (1) GI bleed ICD Code: K92.2 (2) Transient hypotension ICD Code: I95.9 (3) A-fib ICD Code: I48.91 (4) Thrombocytopenia ICD Code: D69.6 Procedures EGD and colonoscopy. Brief History - From Admission This is an 86-year-old male with PMH of HTN, A. fib on Coumadin, Gastritis, AAA , h/o Prostate CA and Skin CA who was brought to the ER by EMS secondary to GI Bleed. Per pt he woke up from sleep earlier this evening and had acute onset of abdominal cramping followed by bowel incontinence. On arrival, BP 80s systolic s/p 500ml IVF w/ repeat BP 101/54, HR 88, O2 sat 98% on RA, Afebrile. Hgb 13.2. Chemistry essentially unremarkable. Troponin negative. INR 1.9. UA negative. CXR with no acute findings. CT Abd/Pelvis w/ infrarenal abdominal aortic aneurysm 4.1 x 3.3 cm. Hemoccult+ on exam. Started on Protonix gtt in ER. CBC/BMP: 05/02/16 0830 05/02/16 0830 Significant Findings Laboratory Tests Test 04/29/16 04/30/16 05/01/16 05/02/16 23:25 03:43 05:54 08:30 Red Blood Count 4.42 MIL/MM3 4.20 MIL/MM3 4.26 MIL/MM3 (4.50-5.90) (4.50-5.90) (4.50-5.90) Hematocrit 37.4 % 38.2 % 36.1 % 35.6 % (39.0-51.0) (39.0-51.0) (39.0-51.0) (39.0-51.0) Platelet Count 139 TH/MM3 137 TH/MM3 131 TH/MM3 126 TH/MM3 (150-450) (150-450) (150-450) (150-450) Neutrophils (%) (Auto) 76.2 % 75.7 % 72.3 % (16.0-70.0) (16.0-70.0) (16.0-70.0) Neutrophils # (Auto) 8.2 TH/MM3 8.3 TH/MM3 (1.8-7.7) (1.8-7.7) Prothrombin Time 21.8 SEC 20.1 SEC (9.8-11.6) (9.8-11.6) Activated Partial 41.7 SEC Thromboplast Time (24.3-30.1) Estimat Glomerular Filtration 53 ML/MIN (>89) 65 ML/MIN (>89) 73 ML/MIN (>89) Rate Random Glucose 122 MG/DL (74-106) Total Bilirubin 1.4 MG/DL 1.4 MG/DL (0.2-1.0) (0.2-1.0) Aspartate Amino Transf 41 U/L (15-37) (AST/SGOT) Troponin I LESS THAN 0.02 NG/ML (0.02-0.05) B-Type Natriuretic Peptide 569 PG/ML (0-100) Chloride Level 108 MEQ/L 109 MEQ/L (98-107) (98-107) Total Protein 6.3 GM/DL (6.4-8.2) Hemoglobin 12.5 GM/DL 12.6 GM/DL (13.0-17.0) (13.0-17.0) Imaging Last Impressions Abdomen/Pelvis CT 04/30/16 0045 Signed Impressions: Service Date/Time: Saturday, April 30, 2016 01:40 - CONCLUSION: 1. 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 2. Atherosclerosis. 3. Nonobstructing renal calculi. 4. Diverticulosis without diverticulitis. 5. Prominent prostate gland. 6. Small hiatal hernia. 7. Fat containing umbilical hernia. 8. Tiny bilateral pleural effusions. Morgan Moser MD Chest X-Ray 04/29/16 4035 Signed Impressions: Service Date/Time: Friday, April 29, 2016 23:51 - CONCLUSION: No acute disease. Morgan Moser MD PE at Discharge GENERAL: Elderly male in no apparent distress. CARDIOVASCULAR: Normal rate and regular rhythm without murmurs, gallops, or rubs. RESPIRATORY: Good respiratory efforts. Breath sounds equal and clear to auscultation bilaterally. GASTROINTESTINAL: Abdomen soft, non-tender, non-distended. Normal active bowel sounds MUSCULOSKELETAL: Extremities without cyanosis, or edema. NEURO: Alert & Oriented x4 to person, place, time, situation. Moves all ext x4 PSYCH: Appropriate mood and affect. Pt update on day of discharge Patient reports that he is feeling great. No further melena. No diarrhea. He wants to go home. Discussed with his daughter at bedside. Hospital Course 86-year-old male admitted with GI bleeding while on Coumadin, transient hypotension. Evaluation and treatment course detailed below: GI bleeding: Patient presented with melena. He was on Coumadin for atrial fibrillation. This was held. -The patient was followed by gastroenterology. He underwent EGD and colonoscopy which revealed esophagitis, diverticulosis, colon polyp and internal hemorrhoids. Patient was treated with IV Protonix. GI bleeding resolved. I discussed the case with GI Dr. Butts on the day of discharge. The patient is to be restarted on a PPI which he has taken in the past but has been off of it for some time. He is to adhere to a high-fiber diet. He can resume Coumadin the next day. Transient hypertension: Systolic blood pressure was in the 80s on arrival. His blood pressure remain normal. His hypertensives were put on hold. On discharge. The patient was advised to stop torsemide, amlodipine, and Entresto. He was discharged on a lower dose of carvedilol 3.125 mg twice a day. The patient is advised to follow-up with his browning processor as his medication may need to be titrated. Patient and his daughter voiced understanding. Paroxysmal atrial fibrillation: Patient was on Coumadin. INR on admission 1.9. GI cleared him to resume Coumadin the next day after discharge. Thrombocytopenia: Unsure of chronicity. Remained stable. Pt Condition on Discharge: Good Discharge Disposition: Discharge Home Discharge Time: <= 30 minutes Discharge Instructions DIET: Follow Instructions for: Heart Healthy Diet, Coumadin (Warfarin) Diet Activities you can perform: Regular-No Restrictions Follow up Referrals: Cardiology - 3-5 Days Gastroenterology - 2 Weeks @ [facility] with Janeth Mueller MD Changed Medications: Carvedilol (Carvedilol) 3.125 Mg Tab 3.125 MG PO BID #60 Ref 0 TAB (Changed from: Carvedilol (Coreg) 12.5 Mg Tab 12.5 Mg PO BID #60 TAB Ref 0) Continued Medications: Atorvastatin (Atorvastatin) 40 Mg Tab 40 MG PO HS Cholesterol Management #30 Ref 0 TAB Pantoprazole (Protonix) 40 Mg Tab 40 MG PO DAILY Ulcer Prevention #30 Ref 0 TAB (This prescription has been renewed) Warfarin (Jantoven) 5 Mg Tab 5 MG PO DAILY Blood Clot Prevention #30 Ref 0 TAB Discontinued Medications: Amlodipine (Norvasc) 10 Mg Tab 10 MG PO DAILY Blood Pressure Management #30 Ref 0 TAB Sacubitril-Valsartan (Entresto) 97-103 Mg Tab 1 TAB PO DAILY Heart Failure #30 Ref 0 TAB Torsemide (Torsemide) 10 Mg Tab 10 MG PO BID #60 Ref 0 TAB Wm Cottrell MD May 02, 2016 16:10
--- NOTE | 2016-05-02 16:10 | HHI.DCPOC ---
Discharge Care Plan Diagnosis: (1) GI bleed (2) Transient hypotension (3) A-fib (4) Thrombocytopenia Goals to Promote Your Health * To prevent worsening of your condition and complications * To maintain your health at the optimal level Directions to Meet Your Goals Take your medications as prescribed Follow your dietary instruction Follow activity as directed Keep your appointments as scheduled Take your immunizations and boosters as scheduled If your symptoms worsen call your PCP, if no PCP go to Urgent Care Center or Emergency Room Smoking is Dangerous to Your Health. Avoid second hand smoke Call the 24-hour hour crisis hotline for domestic abuse at Wm Cottrell MD May 02, 2016 16:09
== END 2016-05-02 19:28 | disposition home or self-care (01) | DRG 379 ==
LOC: NEPE 22:53 → NEDA 04-30 02:33 → N05B 04-30 05:08
PROVIDERS: ADMIT Family Medicine; ATTEND Family Medicine
PROC: 0DJ08ZZ Inspection of Upper Intestinal Tract, Via Natural or Artificial Opening Endoscopic (ICD-10-PCS; principal; 2016-05-01 11:20)
PROC: 0DBH8ZX Excision of Cecum, Via Natural or Artificial Opening Endoscopic, Diagnostic (ICD-10-PCS; 2016-05-02)
DX: K92.2 Gastrointestinal hemorrhage, unspecified (principal); I95.9 Hypotension, unspecified; D69.6 Thrombocytopenia, unspecified; I48.0 Paroxysmal atrial fibrillation; I50.9 Heart failure, unspecified; K20.9 Esophagitis, unspecified; Z79.01 Long term (current) use of anticoagulants; K29.70 Gastritis, unspecified, without bleeding; K57.30 Diverticulosis of large intestine without perforation or abscess without bleeding; D12.0 Benign neoplasm of cecum; K64.4 Residual hemorrhoidal skin tags; K64.8 Other hemorrhoids; Z86.010 Personal history of colon polyps; I10 Essential (primary) hypertension; Z85.46 Personal history of malignant neoplasm of prostate; Z85.828 Personal history of other malignant neoplasm of skin; Z92.3 Personal history of irradiation; I25.2 Old myocardial infarction; Z95.0 Presence of cardiac pacemaker; I25.10 Atherosclerotic heart disease of native coronary artery without angina pectoris; I71.4 Abdominal aortic aneurysm, without rupture; E78.5 Hyperlipidemia, unspecified; M19.90 Unspecified osteoarthritis, unspecified site; Z96.652 Presence of left artificial knee joint
CPT/HCPCS: 71010; 74177; 80048; 80053; 81001; 82550; 83605; 83690; 83735; 83880; 84484; 85025; 85027; 85610; 85730; 86140; 86850; 86900; 86901; 88305; 93005; 96360; C9113; J7030; J7040; J7120; Q9967